=== PATIENT | male | born 1975 | race Caucasian/White ===

== ENCOUNTER 2021-09-05 17:12 | Emergency (ER) | payer MEDICAID ==
[~2021-09-05] VITALS: Ht 190.5 cm; Wt 80.9 kg
--- NOTE | 2021-09-05 17:40 | EKG ---
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
--- NOTE | 2021-09-05 17:45 | PHYS DOC ---
Past History Past Surgical History: Other Additional Past Surgical Histo: collapsed lung chest tube placed and removed (VENANCIO SILVA) Alcohol Use: Occasionally (VENANCIO SILVA) General Adult EDM: Chief Complaint: CHEST PAIN HPI: HPI: Patient is a 46 year old male who presents with left-sided chest pain. He rates his pain 3/10 that begins in his mid thorax and radiates up on the left side of his chest. Patient states he woke up yesterday morning around 0500 with left- sided low back pain. He states that he went back to sleep, and when he woke up it was mostly resolved. Today he states the pain is higher and radiates into his chest, which concerned him. Patient reports 17 years ago, he had a spo ntaneous pneumothorax with chest tube that was placed and removed. Otherwise, he denies past medical history. Patient has additional complaint of cough and runny nose that began about a week ago. Patient denies fever, chills, significant shortness of breath, sputum production, palpitations, edema. Patient was vaccinated against COVID-19. (VENANCIO SILVA) Review of Systems: Review of Systems: Constitutional: See HPI Eyes: Denies change in visual acuity or visual field deficits HENT: See HPI Respiratory: See HPI Cardiovascular: See HPI GI: Denies abdominal pain, nausea, vomiting, bloody stools or diarrhea : Denies dysuria or hematuria Musculoskeletal: See HPI Integument: Denies rash or other skin lesions Neurologic: Denies headache, focal weakness or sensory changes (VENANCIO SILVA) Allergies: Allergies: Allergies Coded Allergies Type Severity Reaction Last Updated Verified No Known Drug Allergies 09/05/21 No (VENANCIO SILVA) Physical Exam: PE: Constitutional: Well developed, well nourished, no acute distress, non-toxic appearance. HENT: Normocephalic, atraumatic, bilateral external ears normal, oropharynx moist, no oral exudates, nose without obvious deformities or discharge. Eyes: PERRLA, EOMI, conjunctiva normal, no discharge. Neck: Normal range of motion, no tenderness, supple, no stridor. Cardiovascular: Heart rate regular rhythm, no murmur. Lungs & Thorax: Bilateral breath sounds even and clear to auscultation. Abdomen: Bowel sounds normal, soft, no tenderness, no masses, no pulsatile masses. Skin: Warm, dry, no erythema, no rash. Back: No step-offs, no midline tenderness, lumbar paraspinal tenderness and spasm noted on left side, no CVA tenderness. Extremities: No tenderness, no cyanosis, no clubbing, ROM intact, no edema. Neurologic: Alert and oriented x4, no focal deficits noted. (VENANCIO SILVA) Current Patient Data: Vital Signs: Vital Signs Date Time Temp Pulse Resp B/P (MAP) Pulse Ox O2 Delivery O2 Flow Rate FiO2 09/05/21 17:20 98.1 104 19 156/91 (112) 98 Room Air (VENANCIO SILVA) EKG: EKG: EKG Interpreted by Dr. Benedict at 1722: Regular rate and rhythm 70 bpm with no ectopic beats. Biphasic (up-and-down) T waves in anterior leads. Regular QR interval. No STEMI. (VENANCIO SILVA) Radiology/Procedures: Radiology/Procedures: PROCEDURE: PORTABLE CHEST 1V Exam: Chest one view INDICATION: Left-sided chest pain TECHNIQUE: Frontal view of the chest Comparisons: None FINDINGS: The cardiomediastinal silhouette and pulmonary vessels are within normal limits. Subtle patchy airspace disease at the left lung base. No pleural effusion. IMPRESSION: Left basilar airspace disease may be infectious or inflammatory in etiology. Electronically signed by: Gilberto Spain MD (09/05/2021 5:52 PM) [facility] (VENANCIO SILVA) Heart Score: C/O Chest Pain: Yes HEART Score for Chest Pain: HEART Score for Chest Pain Response (Comments) Value History Slighlty/Non-Suspicious 0 ECG Nonspecific Repolarizatio 1 Age < 45 0 Risk Factors No Risk Factors 0 Total 1 Risk Factors: Risk Factors: none Risk Scores: Score 0 - 3: 2.5% MACE over next 6 weeks - Discharge Home Score 4 - 6: 20.3% MACE over next 6 weeks - Admit for Clinical Observation Score 7 - 10: 72.7% MACE over next 6 weeks - Early Invasive Strategies (VENANCIO SILVA) Course & Med Decision Making: Course & Med Decision Making Pertinent Labs and Imaging studies reviewed. (See chart for details) Patient presentation concerning for cardiac etiology versus pneumonia versus muscle spasm of back. Work-up today will include chest x-ray, lab work including troponin, EKG. Chest x-ray shows left basilar infiltrate, consistent with pneumonia. Patient advised to quarantine until he gets COVID test results back tomorrow. Patient will be provided with Z-Antonio and return precautions. Patient understands and is agreeable to discharge plan. (VENANCIO SILVA) Dragon Disclaimer: Dragon Disclaimer: This electronic medical record was generated, in whole or in part, using a voice recognition dictation system. (VENANCIO SILVA) Attending Co-Sign The patient was seen and interviewed as well as examined at the bedside. The chart was reviewed. The case was discussed. Agree with the plan of care. (ANIRUDH PEREZ DO) Departure Departure: Impression: Primary Impression: Community acquired pneumonia of left lower lobe of lung Disposition: HOME / SELF CARE / HOMELESS Condition: STABLE Referrals: PCP,NO (PCP) Patient Instructions: Pneumonia, Adult, [id number] Additional Instructions: Please return to the emergency department if you develop worsening symptoms, especially difficulty breathing or a fever that will not go down. You may follow-up with your primary care provider in about a week if your symptoms are not improving. Scripts Albuterol Sulfate (PROAIR HFA INHALER) 8.5 Gm Hfa.aer.ad 2 PUFF IH PRN Q4-6HRS PRN for SHORTNESS OF BREATH for 21 Days, #1 INHALER 0 Refills Prov: VENANCIO SILVA 09/05/21 Azithromycin (ZITHROMAX) 250 Mg Tablet 1 PKG PO UD for pna, #6 TAB Prov: VENANCIO SILVA 09/05/21 VENANCIO SILVA Sep 05, 2021 17:45 ANIRUDH PEREZ DO Sep 05, 2021 19:21
--- NOTE | 2021-09-05 17:54 | RAD ---
Exam: Chest one view INDICATION: Left-sided chest pain TECHNIQUE: Frontal view of the chest Comparisons: None FINDINGS: The cardiomediastinal silhouette and pulmonary vessels are within normal limits. Subtle patchy airspace disease at the left lung base. No pleural effusion. IMPRESSION: Left basilar airspace disease may be infectious or inflammatory in etiology. Electronically signed by: Gilberto Spain MD (09/05/2021 5:52 PM) [facility]
[2021-09-05 18:23] LABS: BASO # 0.1 x10^3/uL (0.0-0.2); BASO % 0 % (0-3); EOS # 0.2 x10^3/uL (0.0-0.7); EOS % 1 % (0-3); HEMATOCRIT 40.7 % (39.0-53.0); HEMOGLOBIN 13.8 g/dL (13.0-17.5); LYMPH # 2.4 x10^3/uL (1.0-4.8); LYMPH % 16 % (24-48); MEAN CORPUSCULAR HEMOGLOBIN 32 pg (25-35); MEAN CORPUSCULAR HGB CONC 34 g/dL (31-37); MEAN CORPUSCULAR VOLUME 94 fL (79-100); MONO # 1.3 x10^3/uL (0.0-1.1); MONO % 9 % (0-9); NEUT % 74 % (31-73); PLATELET COUNT 358 x10^3/uL (140-400); RED BLOOD COUNT 4.34 x10^6/uL (4.30-5.70); RED CELL DISTRIBUTION WIDTH 13.2 % (11.5-14.5)
[2021-09-05 18:34] LABS: CREATININE 0.8 mg/dL (0.7-1.3); GFR 103.6; POTASSIUM 4.1 mmol/L (3.5-5.1)
[2021-09-05 18:36] VITALS: BP 143/72
[2021-09-05 18:40] LABS: ALBUMIN 3.8 g/dL (3.4-5.0); ALBUMIN/GLOBULIN RATIO 1.1 (1.0-1.7); TOTAL BILIRUBIN 0.2 mg/dL (0.2-1.0); TOTAL PROTEIN 7.3 g/dL (6.4-8.2)
[2021-09-05 18:45] LABS: INFLUENZA A PATIENT NEGATIVE (NEGATIVE); INFLUENZA B PATIENT NEGATIVE (NEGATIVE)
[2021-09-05] MEDS ORDERED: AZIT250T PO (18:55)
[2021-09-05] MEDS ORDERED: ALBU2.5V8 IH (18:55)
== END 2021-09-05 19:01 | disposition home or self-care (01) ==
LOC: ER 17:12
DX: J18.1 Lobar pneumonia, unspecified organism (principal); Z20.822 Contact with and (suspected) exposure to COVID-19
CPT/HCPCS: 36415; 71045; 80053; 83690; 84484; 85025; 87804; 93005; 99285; C9803; U0003

== ENCOUNTER 2021-09-06 18:49 | Emergency (ER) | payer MEDICAID ==
[~2021-09-06] VITALS: Ht 190.5 cm; Wt 19.7 kg
[~2021-09-06 18:49] MED LIST: ALBU2.5V8 IH; AZIT250T PO
--- NOTE | 2021-09-06 19:57 | RAD ---
Exam: Chest one view INDICATION: Chest pain TECHNIQUE: Frontal view of the chest Comparisons: 09/05/2021 FINDINGS: The cardiomediastinal silhouette and pulmonary vessels are within normal limits. Patchy airspace disease at the left lung base. No pleural effusion. IMPRESSION: Persistent left basilar airspace disease, nonspecific may be infectious or inflammatory in etiology. Electronically signed by: Gilberto Spain MD (09/06/2021 7:54 PM) [facility]
--- NOTE | 2021-09-06 20:23 | PHYS DOC ---
Past History Past Surgical History: Other Additional Past Surgical Histo: collapsed lung chest tube placed and removed Alcohol Use: Occasionally General Adult EDM: Chief Complaint: CHEST PAIN HPI: HPI: 46-year-old male returns the emergency room with continued left-sided chest pain and flank pain. Patient was seen in this emergency room yesterday and diagnosed with left-sided pneumonia. He is on antibiotics and has an inhaler. He presents tonight because he states that the pain is worse when he lays down. Is an 8 out of 10 pain. His current pain is 2 out of 10. He states it is worse with deep breathing. Denies fever chills. He has no other specific complaints. Review of Systems: Review of Systems: Constitutional: Denies fever or chills Eyes: Denies change in visual acuity HENT: Denies nasal congestion or sore throat Respiratory: Denies cough or shortness of breath Cardiovascular: chest pain GI: Left upper abdominal pain. Denies nausea, vomiting, bloody stools or diarrhea : Denies dysuria Musculoskeletal: Denies back pain or joint pain Integument: Denies rash Neurologic: Denies headache, focal weakness or sensory changes Endocrine: Denies polyuria or polydipsia Lymphatic: Denies swollen glands Psychiatric: anxiety Allergies: Allergies: Allergies Coded Allergies Type Severity Reaction Last Updated Verified No Known Drug Allergies 09/05/21 No Physical Exam: PE: Constitutional: Well developed, well nourished, no acute distress, non-toxic appearance. [] HENT: Normocephalic, atraumatic, bilateral external ears normal, oropharynx moist, no oral exudates, nose normal. [] Eyes: PERRLA, EOMI, conjunctiva normal, no discharge. [] Neck: Normal range of motion, no tenderness, supple, no stridor. [] Cardiovascular: Heart rate regular rhythm, no murmur [] Lungs & Thorax: Bilateral breath sounds clear to auscultation [] Abdomen: Bowel sounds normal, soft, no tenderness, no masses, no pulsatile masses. [] Skin: Warm, dry, no erythema, no rash. [] Back: No tenderness, no CVA tenderness. [] Extremities: No tenderness, no cyanosis, no clubbing, ROM intact, no edema. [] Neurologic: Alert and oriented X 3, normal motor function, normal sensory function, no focal deficits noted. [] Psychologic: Affect normal, judgement normal, mood anxious. [] Current Patient Data: Vital Signs: Vital Signs Date Time Temp Pulse Resp B/P (MAP) Pulse Ox O2 Delivery O2 Flow Rate FiO2 09/06/21 19:11 98.8 88 20 76/72 (73) 98 EKG: EKG: Sinus rhythm, rate 75, rightward axis, no ST elevation or depression. [] Radiology/Procedures: Radiology/Procedures: [] Impressions: Exam: Chest one view INDICATION: Chest pain TECHNIQUE: Frontal view of the chest Comparisons: 09/05/2021 FINDINGS: The cardiomediastinal silhouette and pulmonary vessels are within normal limits. Patchy airspace disease at the left lung base. No pleural effusion. IMPRESSION: Persistent left basilar airspace disease, nonspecific may be infectious or inflammatory in etiology. Electronically signed by: Golden Mc MD (09/06/2021 7:54 PM) [facility] DICTATED AND SIGNED BY: GOLDEN MC MD DATE: 09/06/211952 CC: ANIRUDH PEREZ DO; PCP,NO ~MTH0 0 Exam: CT chest, abdomen and pelvis without contrast INDICATION: Flank pain TECHNIQUE: Sequential axial images through the chest, abdomen and pelvis obtained without IV contrast. Sagittal and coronal reformatted images were reconstructed from the axial data and reviewed. Exposure: One or more of the following in the visualized dose reduction techniques were utilized for this examination: 1. Automated exposure control 2. Adjustment of the MA and/or KV according to patient size 3. Use of iterative of reconstructive technique Comparisons: None FINDINGS: No enlarged mediastinal lymph nodes are identified. Heart size is normal. No pericardial effusion. Thoracic aorta has normal course and caliber. Pulmonary artery is not enlarged. Airways are patent. Consolidative changes noted in the right lower lobe. No pneumothorax. No pleural effusion or thickening. Evaluation solid organs limited secondary to noncontrast technique. Liver, spleen, pancreas, gallbladder and adrenals are unremarkable. No perinephric inflammation or hydronephrosis. No renal or ureteral calculi are identified. Bladder is decompressed not well evaluated. Prostate is not enlarged. Moderate amount stool noted in the colon. Appendix is normal. No free intra- abdominal air or fluid. No obstruction. Abdominal aorta has normal course and caliber. No enlarged abdominal lymph nodes are identified. No suspicious osseous lesions or acute fractures. IMPRESSION: 1. Consolidative changes noted greatest in the left lower lobe favored to be infectious or inflammatory in etiology. 2. No renal or ureteral calculi. No evidence for obstructive uropathy. Electronically signed by: Golden Mc MD (09/06/2021 9:16 PM) [facility] DICTATED AND SIGNED BY: GOLDEN MC MD DATE: 09/06/212109 CC: ANIRUDH PEREZ DO; PCP,NO ~MTH0 0 Heart Score: C/O Chest Pain: Yes HEART Score for Chest Pain: HEART Score for Chest Pain Response (Comments) Value History Slighlty/Non-Suspicious 0 ECG Nonspecific Repolarizatio 1 Age >45 - < 65 1 Risk Factors No Risk Factors 0 Troponin < Normal Limit 0 Total 2 Risk Factors: Risk Factors: DM, Current or recent (<one month) smoker, HTN, HLP, family history of CAD, obesity. Risk Scores: Score 0 - 3: 2.5% MACE over next 6 weeks - Discharge Home Score 4 - 6: 20.3% MACE over next 6 weeks - Admit for Clinical Observation Score 7 - 10: 72.7% MACE over next 6 weeks - Early Invasive Strategies Course & Med Decision Making: Course & Med Decision Making Pertinent Labs and Imaging studies reviewed. (See chart for details) Chest x-ray consistent use to show left-sided pneumonia. Patient's labs are significant for an elevated white count of 16. The patient's CT of the chest abdomen pelvis only shows the pneumonia in the left lower lung. The patient is to continue his antibiotics. He is stable for discharge at this time. [] Pepe Disclaimer: Pepe Disclaimer: This electronic medical record was generated, in whole or in part, using a voice recognition dictation system. Departure Departure: Impression: Primary Impression: Pneumonia Qualified Codes: J18.9 - Pneumonia, unspecified organism Disposition: HOME / SELF CARE / HOMELESS Condition: STABLE Referrals: PCP,NO (PCP) Patient Instructions: Pneumonia, Adult, [id number] ANIRUDH PEREZ DO Sep 06, 2021 20:23
[2021-09-06 21:06] LABS: BASO # 0.1 x10^3/uL (0.0-0.2); BASO % 1 % (0-3); EOS # 0.2 x10^3/uL (0.0-0.7); EOS % 1 % (0-3); HEMATOCRIT 41.7 % (39.0-53.0); HEMOGLOBIN 14.1 g/dL (13.0-17.5); LYMPH % 13 % (24-48); MEAN CORPUSCULAR HEMOGLOBIN 32 pg (25-35); MEAN CORPUSCULAR HGB CONC 34 g/dL (31-37); MEAN CORPUSCULAR VOLUME 93 fL (79-100); MONO # 1.3 x10^3/uL (0.0-1.1); MONO % 8 % (0-9); NEUT # 12.7 x10^3uL (1.8-7.7); NEUT % 78 % (31-73); PLATELET COUNT 370 x10^3/uL (140-400); RED BLOOD COUNT 4.46 x10^6/uL (4.30-5.70); RED CELL DISTRIBUTION WIDTH 13.3 % (11.5-14.5); WHITE BLOOD COUNT 16.3 x10^3/uL (4.0-11.0)
[2021-09-06 21:09] LABS: CALCIUM 9.8 mg/dL (8.5-10.1); CREATININE 0.8 mg/dL (0.7-1.3); GFR 103.6; POTASSIUM 4.3 mmol/L (3.5-5.1)
[2021-09-06 21:14] LABS: ALBUMIN 3.8 g/dL (3.4-5.0); TOTAL BILIRUBIN 0.3 mg/dL (0.2-1.0); TOTAL PROTEIN 7.6 g/dL (6.4-8.2)
--- NOTE | 2021-09-06 21:18 | RAD ---
Exam: CT chest, abdomen and pelvis without contrast INDICATION: Flank pain TECHNIQUE: Sequential axial images through the chest, abdomen and pelvis obtained without IV contrast . Sagittal and coronal reformatted images were reconstructed from the axial data and reviewed. Exposure: One or more of the following in the visualized dose reduction techniques were utilized for this examination: 1. Automated exposure control 2. Adjustment of the MA and/or KV according to patient size 3. Use of iterative of reconstructive technique Comparisons: None FINDINGS: No enlarged mediastinal lymph nodes are identified. Heart size is normal. No pericardial effusion. Thoracic aorta has normal course and caliber. Pulmonar y artery is not enlarged. Airways are patent. Consolidative changes noted in the right lower lobe. No pneumothorax. No pleural effusion or thickening. Evaluation solid organs limited secondary to noncontrast technique. Liver, spleen, pancreas, gallbladder and adrenals are unremarkable. No perinephric inflammation or hydronephrosis. No renal or ureteral calculi are identified. Bladder is decompressed not well evaluated. Prostate is not enlarged. Moderate amount stool noted in the colon. Appendix is normal. No free intra-abdominal air or fluid. N o obstruction. Abdominal aorta has normal course and caliber. No enlarged abdominal lymph nodes are identified. No suspicious osseous lesions or acute fractures. IMPRESSION: 1. Consolidative changes noted greatest in the left lower lobe favored to be infectious or inflammat ory in etiology. 2. No renal or ureteral calculi. No evidence for obstructive uropathy. Electronically signed by: Gilberto Spain MD (09/06/2021 9:16 PM) [facility]
[2021-09-06 21:39] VITALS: BP 137/76
--- NOTE | 2021-09-07 07:16 | EKG ---
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
--- NOTE | 2021-09-08 09:48 | NUR ---
Attempted to reach patient with covid results. No answer. Message left
--- NOTE | 2021-09-08 16:34 | NUR ---
Patient notified of covid results
== END 2021-09-06 21:51 | disposition home or self-care (01) ==
LOC: ER 18:49
DX: J18.9 Pneumonia, unspecified organism (principal); R10.12 Left upper quadrant pain
CPT/HCPCS: 36415; 71045; 71250; 74176; 80053; 84484; 85025; 93005; 99285-25

== ENCOUNTER 2021-09-28 15:19 | Inpatient (IN) | payer MEDICAID ==
[~2021-09-28] VITALS: Ht 190.5 cm; Wt 82.1 kg
--- NOTE | 2021-09-28 16:52 | RAD ---
INDICATION: Reason: LEFT SIDED CHEST PAIN / Spl. Instructions: / History: COMPARISON: September 06, 2021 FINDINGS: Single view of chest obtained. Blunting of the left costophrenic angle with focal opacity at the left lung base. Apical densities which could be from scarring. Right upper lung nodule which is better evaluated on recent CT IMPRESSION: * Blunting of the left costophrenic angle as well as opacity at the left lung base appears increased from prior could be secondary to infiltrate within the region with a component of small pleural effu yonatan not excluded. Follow-up could be obtained to ensure this resolves to exclude a persistent lesion in the area. Electronically signed by: Brant Gaona MD (09/28/2021 4:49 PM) [id number]
[2021-09-28] MEDS ORDERED: IOHEXOL 300 MG/ML 75 ML VIAL. IV ONE (17:00)
[2021-09-28] MEDS: MORPHINE SULFATE 4 MG/ML DISP.SYRIN. IV/SQ PRN ×3 (17:01→23:52)
--- NOTE | 2021-09-28 17:12 | PHYS DOC ---
Past History Past Surgical History: Other Additional Past Surgical Histo: collapsed lung chest tube placed and removed 17 YRS AGO (ANDREI THOMPSON WOOD TILE INSTALLATION HELPER) Alcohol Use: Occasionally (ANDREI THOMPSON WO[employer] TILE INSTALLATION HELPER) Adult General Chief Complaint Chief Complaint: CHEST PAIN HPI HPI Patient is a male with history of spontaneous pneumothorax years ago who presents the ED today complaining of 7 out of 10 left-sided sharp intermittent chest pain, symptoms began this morning. Patient states symptoms are worse on deep breaths. Denies anything specifically relieving his symptoms, he states he tried taking Aleve with no relief. He states he was diagnosed with pneumonia on September 05, 2021 and was treated with azithromycin. Patient states symptoms feel similar. (ANDREI THOMPSON WO[employer] TILE INSTALLATION HELPER) Review of Systems Review of Systems Constitutional: Denies fever or chills [] Eyes: Denies change in visual acuity, redness, or eye pain [] HENT: Denies nasal congestion or sore throat [] Respiratory: Denies cough or shortness of breath [] Cardiovascular: Reports left-sided chest pain GI: Denies abdominal pain, nausea, vomiting, bloody stools or diarrhea [] : Denies dysuria or hematuria [] Musculoskeletal: Denies back pain or joint pain [] Integument: Denies rash or skin lesions [] Neurologic: Denies headache, focal weakness or sensory changes [] Endocrine: Denies polyuria or polydipsia [] All other systems were reviewed and found to be within normal limits, except as documented in this note. (ANDREI THOMPSON WO[employer] INSTALLATION HELPER) Current Medications Current Medications Current Medications Medications (Trade) Dose Ordered Sig/Suzie Start Time Stop Time Status Last Admin Dose Admin Iohexol (Omnipaque 300 Mg/ml) 75 ml 1X ONCE 09/28/21 17:00 09/28/21 17:01 DC Morphine Sulfate (Morphine 4mg Syringe) 4 mg PRN Q15MIN PRN 09/28/21 16:45 09/29/21 16:44 09/28/21 17:01 4 MG (ANDREI THOMPSON [employer]ALLATION HELPER) Allergies Allergies Allergies Coded Allergies Type Severity Reaction Last Updated Verified No Known Drug Allergies 09/28/21 No (ANDREI THOMPSON [employer]STALLATION HELPER) Physical Exam Physical Exam Constitutional: Well developed, well nourished, no acute distress, non-toxic appearance. [] HENT: Normocephalic, atraumatic, bilateral external ears normal, oropharynx moist, no oral exudates, nose normal. [] Eyes: PERRLA, EOMI, conjunctiva normal, no discharge. [] Neck: Normal range of motion, no tenderness, supple, no stridor. [] Cardiovascular:Heart rate regular rhythm, no murmur [] Lungs & Thorax: Diminished breath sounds to the left upper lobe Abdomen: Bowel sounds normal, soft, no tenderness, no masses, no pulsatile masses. [] Skin: Warm, dry, no erythema, no rash. [] Back: No tenderness, no CVA tenderness. [] Extremities: No tenderness, no cyanosis, no clubbing, ROM intact, no edema. [] Neurologic: Alert and oriented X 3, normal motor function, normal sensory function, no focal deficits noted. [] Psychologic: Affect normal, judgement normal, mood normal. [] (ANDREI THOMPSON WO[employer] TILE INSTALLATION HELPER) Current Patient Data Vital Signs Vital Signs Date Time Temp Pulse Resp B/P (MAP) Pulse Ox O2 Delivery O2 Flow Rate FiO2 09/28/21 17:01 43 92 09/28/21 16:50 96 128/82 (97) Room Air 09/28/21 16:11 99.7 (ANDREI THOMPSON [employer]STALLATION HELPER) EKG EKG Interpreted by Dr. Johnson Garrison sinus rhythm heart rate 96 no STEMI[] (ANDREI THOMPSON APRN) Radiology/Procedures Radiology/Procedures []PROCEDURE: PORTABLE CHEST 1V INDICATION: Reason: LEFT SIDED CHEST PAIN / Spl. Instructions: / History: COMPARISON: September 06, 2021 FINDINGS: Single view of chest obtained. Blunting of the left costophrenic angle with focal opacity at the left lung base. Apical densities which could be from scarring. Right upper lung nodule which is better evaluated on recent CT IMPRESSION: * Blunting of the left costophrenic angle as well as opacity at the left lung base appears increased from prior could be secondary to infiltrate within the region with a component of small pleural effusion not excluded. Follow-up could be obtained to ensure this resolves to exclude a persistent lesion in the area. Electronically signed by: Deidre De Dios MD (09/28/2021 4:49 PM) [id number] DICTATED AND SIGNED BY: DEIDRE DE DIOS MD DATE: 09/28/21 1646 CC: LOKESH GARRISON MD; ANDREI THOMPSON APRN; PCP,NO ~MTH0 0 PROCEDURE: CT CHEST W/CONTRAST INDICATION: Reason: left sided chest pain OMNI 300 75 ML / Spl. Instructions: / History: COMPARISON: September 06, 2021 TECHNIQUE: Axial CT images obtained through the chest. Intravenous contrast was utilized. One or more of the following individualized dose reduction techniques were utilized for this examination: 1. Automated exposure control; 2. Adjustment of the mA and/or kV according to patient size; 3. Use of iterative reconstruction technique. FINDINGS: Consolidation is seen at the left lung base with adjacent small pleural effusion. Cystic changes within the bilateral lungs. Linear high density structure left upper lung could be postoperative or from linear calcification. There is some subpleural nodularity at the right upper lung again seen. Heterogeneity of the partially visualized spleen which could be from phase of enhancement but limits evaluation. There is some prominent lymph nodes in the mediastinum. No evidence of thoracic aortic aneurysm.. Mild degenerative changes spine. IMPRESSION: Repeat demonstration of consolidation at the left lung base which could be secondary to infiltrate within the region. Would obtain a follow-up to ensure that this resolves to exclude any persistent mass in the area. There is also small left-sided pleural effusion now seen. Subpleural nodularity at the right lung apex. Attention on follow-up to ensure no growth. Cystic changes the lungs. Electronically signed by: Deidre De Dios MD (09/28/2021 5:26 PM) DESKTOP- [id number] DICTATED AND SIGNED BY: DEIDRE DE DIOS MD DATE: 09/28/21 1717 CC: LOKESH GARRISON MD; ANDREI THOMPSON APRN; PCP,NO ~MTH0 0 (ANDREI THOMPSON APRN) Heart Score C/O Chest Pain: N/A Risk Factors: Risk Factors: DM, Current or recent (<one month) smoker, HTN, HLP, family history of CAD, obesity. Risk Scores: Risk Factors: DM, Current or recent (<one month) smoker, HTN, HLP, family history of CAD, obesity. (ANDREI THOMPSON APRN) Course & Med Decision Making Course & Med Decision Making Pertinent Labs and Imaging studies reviewed. (See chart for details) This is a 46-year-old male patient presented to the ED today complaining of chest pain that began this morning. Patient was diagnosed with pneumonia September 05, 2021 and treated with azithromycin. Vitals on arrival to the ED temperature 99.7 heart rate 102 respiration 36 on room air, blood pressure 128/75, O2 sats 96% Chest x-ray noted for increased infiltrate to the left lower lobe worse than the previous exam CTA chest noted for left lower lobe pneumonia CBC with a WBC of 20.2 and a left shift, CMP with no acute findings, lactic is pending. Blood cultures are pending. Spoke to Dr. Manriquez who accepted patient for admission. Patient was given Rocephin in the ED and started on Levaquin. (ANDREI THOMPSON APRN) Dragon Disclaimer Dragon Disclaimer This electronic medical record was generated, in whole or in part, using a voice recognition dictation system. (ANDREI THOMPSON APRN) Departure Departure: Impression: Primary Impression: Left lower lobe pneumonia Additional Impressions: Sepsis Fever Disposition: ADMITTED INPATIENT Condition: STABLE Referrals: PCP,NO (PCP) Attending Signature Attending Signature I have participated in the care of this patient and I have reviewed and agree with all pertinent clinical information above including history, exam, and recom mendations. (GALI VITAL MD) Problem Qualifiers Primary Impression: Left lower lobe pneumonia Pneumonia type: due to unspecified organism Qualified Codes: J18.9 - Pneumonia, unspecified organism Additional Impressions: Sepsis Sepsis type: sepsis due to unspecified organism Sepsis acute organ dysfunction status: unspecified Qualified Codes: A41.9 - Sepsis, unspecified organism Fever Fever type: unspecified Qualified Codes: R50.9 - Fever, unspecified ANDREI THOMPSON APRN Sep 28, 2021 17:12 GALI VITAL MD Sep 29, 2021 18:22
[2021-09-28 17:21] LABS: BASO # 0.1 x10^3/uL (0.0-0.2); BASO % 1 % (0-3); EOS # 0.1 x10^3/uL (0.0-0.7); EOS % 0 % (0-3); HEMATOCRIT 42.6 % (39.0-53.0); HEMOGLOBIN 14.2 g/dL (13.0-17.5); LYMPH % 5 % (24-48); MEAN CORPUSCULAR HEMOGLOBIN 31 pg (25-35); MEAN CORPUSCULAR HGB CONC 33 g/dL (31-37); MEAN CORPUSCULAR VOLUME 93 fL (79-100); MONO # 1.2 x10^3/uL (0.0-1.1); MONO % 6 % (0-9); NEUT # 17.7 x10^3uL (1.8-7.7); NEUT % 88 % (31-73); PLATELET COUNT 229 x10^3/uL (140-400); RED BLOOD COUNT 4.58 x10^6/uL (4.30-5.70); WHITE BLOOD COUNT 20.2 x10^3/uL (4.0-11.0)
[2021-09-28 17:29] LABS: CALCIUM 8.9 mg/dL (8.5-10.1); CREATININE 0.8 mg/dL (0.7-1.3); GFR 103.6; POTASSIUM 4.2 mmol/L (3.5-5.1)
--- NOTE | 2021-09-28 17:29 | RAD ---
INDICATION: Reason: left sided chest pain OMNI 300 75 ML / Spl. Instructions: / History: COMPARISON: September 06, 2021 TECHNIQUE: Axial CT images obtained through the chest. Intravenous contrast was utilized. One or more of the following individualized dose reduction techniques were utilized for this examinat ion: 1. Automated exposure control; 2. Adjustment of the mA and/or kV according to patient size; 3 . Use of iterative reconstruction technique. FINDINGS: Consolidation is seen at the left lung base with adjacent small pleural effusion. Cystic changes within the bilateral lungs. Linear high density structure left upper lung could be postoperative or from linear calcification. There is some subpleural nodularity at the right upper lung again seen. Heterogeneity of the partially visualized spleen which could be from phase of enhancement but limits evaluation. There is some prominent lymph nodes in the mediastinum. No evidence of thoracic aortic an eurysm.. Mild degenerative changes spine. IMPRESSION: Repeat demonstration of consolidation at the left lung base which could be secondary to infiltrate wi thin the region. Would obtain a follow-up to ensure that this resolves to exclude any persistent mass in the area. There is also small left-sided pleural effusion now seen. Subpleural nodularity at the right lung apex. Attention on follow-up to ensure no growth. Cystic changes the lungs. Electronically signed by: Brant Gaona MD (09/28/2021 5:26 PM) DESKTOP-[id number]
[2021-09-28 17:46] LABS: ALBUMIN 3.9 g/dL (3.4-5.0); ALBUMIN/GLOBULIN RATIO 1.2 (1.0-1.7); MAGNESIUM 1.8 mg/dL (1.8-2.4); TOTAL BILIRUBIN 0.7 mg/dL (0.2-1.0); TOTAL PROTEIN 7.2 g/dL (6.4-8.2)
[2021-09-28 17:54] LABS: % BANDS 2 % (0-9); % LYMPHS 13 % (24-48); % MONOS 8 % (0-10); % SEGS 77 % (35-66); PLT ESTIMATE ADEQUATE (ADEQUATE)
[2021-09-28] MEDS ORDERED: ACETAMINOPHEN 325 MG TABLET PO PRN (19:15)
[2021-09-28] MEDS ORDERED: IV NORMAL SALINE 1,000ML 1,000 ML IV ONE ×2 (19:15)
[2021-09-28] MEDS ORDERED: cefTRIAXone SODIUM 1 GM VIAL ONE (19:20)
[2021-09-28] MEDS ORDERED: IV NORMAL SALINE 50ML 50 ML ONE (19:20)
[2021-09-28 20:15] VITALS: BP 150/86
[2021-09-28 20:24] LABS: AMPHETAMINE/METHAMPHETAMINE NEG (NEG); BARBITURATES NEG (NEG); BENZODIAZEPINES NEG (NEG); CANNABINOIDS POS (NEG); COCAINE NEG (NEG); METHADONE NEG (NEG); OPIATES POS (NEG); PHENCYCLIDINE NEG (NEG)
[2021-09-28 20:26] LABS: BACTERIA,URINE 0 /HPF (0-FEW); BILIRUBIN,URINE NEG (NEG); CLARITY,URINE CLEAR; COLOR,URINE YELLOW; GLUCOSE,URINE NEG (NEG); NITRITE,URINE NEG (NEG); RBC,URINE 0 /HPF (0-2); UROBILINOGEN,URINE 0.2 mg/dL (0.2 mg/dL); WBC,URINE OCC /HPF (0-4)
[2021-09-28] MEDS: ONDANSETRON PF 4 MG/2 ML VIAL. IVP PRN (21:16)
[2021-09-28] MEDS: MORPHINE SULFATE 4 MG/ML DISP.SYRIN. IVP PRN (23:52)
[2021-09-29 00:40] VITALS: BP 152/78
[2021-09-29] MEDS: MORPHINE SULFATE 4 MG/ML DISP.SYRIN. IVP PRN ×5 (04:58→23:26)
[2021-09-29 07:04] LABS: BASO % 0 % (0-3); EOS % 0 % (0-3); HEMATOCRIT 41.1 % (39.0-53.0); HEMOGLOBIN 13.6 g/dL (13.0-17.5); LYMPH # 0.9 x10^3/uL (1.0-4.8); LYMPH % 3 % (24-48); MEAN CORPUSCULAR HEMOGLOBIN 31 pg (25-35); MEAN CORPUSCULAR HGB CONC 33 g/dL (31-37); MEAN CORPUSCULAR VOLUME 94 fL (79-100); MONO # 2.2 x10^3/uL (0.0-1.1); MONO % 7 % (0-9); NEUT # 26.4 x10^3uL (1.8-7.7); NEUT % 89 % (31-73); PLATELET COUNT 199 x10^3/uL (140-400); RED BLOOD COUNT 4.39 x10^6/uL (4.30-5.70); RED CELL DISTRIBUTION WIDTH 13.9 % (11.5-14.5); WHITE BLOOD COUNT 29.5 x10^3/uL (4.0-11.0)
--- NOTE | 2021-09-29 07:07 | EKG ---
[address] [address] Test Date: 2021-09-28 Test Time: 16:58:14 Pat Name: POONAM IBANEZ Department: Room: 111 A Gender: M Strip Presser: STEFANO : 1975 Requested By: ANDREI THOMPSON Order Number: [id number] Reading MD: Hasmukh Irving MD Measurements Intervals [place] Rate: 96 P: 42 LA: 134 QRS: 47 QRSD: 102 T: 70 QT: 332 QTc: 420 Interpretive Statements SINUS RHYTHM Electronically Signed On 10-01-2021 13:22:16 PARANORMAL INVESTIGATOR by Hasmukh Irving MD
[2021-09-29 07:17] LABS: ALBUMIN/GLOBULIN RATIO 0.8 (1.0-1.7); CALCIUM 8.5 mg/dL (8.5-10.1); CREATININE 0.7 mg/dL (0.7-1.3); GFR 120.9; POTASSIUM 3.8 mmol/L (3.5-5.1); TOTAL BILIRUBIN 0.7 mg/dL (0.2-1.0); TOTAL PROTEIN 6.7 g/dL (6.4-8.2)
[2021-09-29] MEDS: ONDANSETRON PF 4 MG/2 ML VIAL. IVP PRN (08:11)
[2021-09-29] MEDS ORDERED: FLU VACC QUAD 21-22 (6MOS+) PF 0.5 ML SYRINGE. VAX IM ONE (09:00)
--- NOTE | 2021-09-29 10:09 | HP ---
DATE OF SERVICE: 09/29/2021 ADMIT DATE: 09/28/2021 ATTENDING PHYSICIAN: Dr. Manriquez. CHIEF COMPLAINT: Left chest pain. HISTORY OF PRESENT ILLNESS: The patient is a 46-year-old gentleman, otherwise healthy. He has been sick for the last 3 weeks. He had around a Z-JACKSON through an urgent care clinic. He is a smoker. Workup in the ED showed a definitive infiltrate in the left lower lobe consistent with community-acquired pneumonia. He has associated pleurisy with sharp pleuritic-type chest pain with deep inspiration. He has been vaccinated for COVID. His serology was negative. He is admitted then with a routine community-acquired pneumonia. PAST MEDICAL HISTORY: Significant for spontaneous pneumothorax requiring a chest tube reexpansion 17 years ago. He is a smoker of a pack of cigarettes daily. He does not drink alcohol. There is no history of diabetes or hypertension. ALLERGIES: He has no known drug allergies. SOCIAL HISTORY: The patient grew up in [place], [place]. 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 He is and lives with 3 children, ages 17, 11 and 7 respectively, 2 sons and the youngest one a daughter. His parents are alive at age 79 and 75 respectively. They still live in [place]. They are in good health. He has not had any COVID exposure. He had his vaccines are ready. REVIEW OF SYSTEMS: All other systems reviewed and turned to be negative. PHYSICAL EXAMINATION: GENERAL: When I saw him, this is a very pleasant, middle-aged gentleman. VITAL SIGNS: Initial vital signs showed a blood pressure of 128/75, pulse was 96 and regular, temperature 99.7 degrees Fahrenheit, oxygen saturation 92% on room air. HEENT: Head is without trauma. Pupils are reactive. Sclerae nonicteric. Oropharynx is clear. NECK: Supple, no bruits. LUNGS: Minimal rhonchi in the left base. CARDIOVASCULAR: Showed regular heart tones. ABDOMEN: Soft. EXTREMITIES: Without edema. NEUROLOGIC FINDINGS: Focally intact. PERTINENT LABORATORY STUDIES: CT of the chest shows consolidation in the left lung with adjacent small pleural effusion. There is a partially visualized spleen. No obstructions or decompensation identified. LABORATORY STUDIES: His admission hemoglobin was 14.2 g/dL with a white count of 20,200. Chemistries were within normal range. Creatinine is 0.7 mg percent. Cardiac enzymes negative. ASSESSMENT: 1. A 46-year-old gentleman with left lower lobe pneumonia, community-acquired. This is not COVID. He is tested negative and he has been vaccinated. 2. Associated pleurisy. 3. Chronic obstructive pulmonary disease due to tobacco use. PLAN: 1. Admit to the inpatient unit. 2. Rocephin and Zithromax has been ordered. 3. Empiric Solu-Medrol. 4. Follow up CBCs. He has leukocytosis and early leukemoid reaction. 5. We are weaning him off supplemental oxygen. His saturation is adequate on room air. ROSEMARY DR: Mark TID: [id number]
[2021-09-29 10:23] VITALS: BP 127/78
[2021-09-29] MEDS ORDERED: methylPREDNISolone SOD SUCC PF 125 MG/2 ML VIAL. IV ONE (11:00)
[2021-09-29] MEDS ORDERED: AZITHROMYCIN 500 MG in IV NORMAL SALINE 250ML 250 ML IV SCH (11:00)
[2021-09-29 15:12] VITALS: BP 137/57
[2021-09-29 19:39] VITALS: BP 134/71
[2021-09-29 23:34] VITALS: BP 136/73
[2021-09-30 06:29] VITALS: BP 118/73
[2021-09-30] MEDS ORDERED: FLU VACC QUAD 21-22 (6MOS+) PF 0.5 ML SYRINGE. VAX IM ONE (09:00)
--- NOTE | 2021-09-30 09:06 | DS ---
DATE OF DISCHARGE: 09/30/2021 ATTENDING PHYSICIAN: Dr. Manriquez. FINAL DISCHARGE DIAGNOSES: 1. Community-acquired pneumonia, left lower lobe. 2. Pleuritic-type chest pain, resolved. 3. Mild hypoxemia, resolved. 4. Tobacco use and mild chronic obstructive pulmonary disease. HISTORY AND PHYSICAL: The patient is a healthy 46-year-old gentleman. He has been vaccinated against COVID. 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 He has been sick for the last several days up to the week before. He went through a round of Z-Antonio without any improvement. He is a smoker. Workup in the ED showed an infiltrate in the left lower lobe consistent with community-acquired pneumonia. Cultures were negative. Clinically, he was not septic. He did have pleuritic-type chest pain, which responded well to corticosteroids. He was admitted for further treatment and evaluation. PHYSICAL EXAMINATION: Please see my dictated note. PERTINENT LABORATORY AND X-RAY STUDIES: Chemistry on admission showed a sodium 137, potassium 3.8 mEq. Blood sugars were normal. Transaminases were normal. Hemoglobin was 14.2 grams, white count 20,000, it was elevated due to margination of white cells from corticosteroid therapy. Serology was negative for coronavirus. Chest x-ray as noted. COURSE IN THE HOSPITAL: The patient was admitted. He was treated with 2 full days of intravenous Rocephin and Zithromax along with Solu-Medrol and supplemental oxygen was able to wean. By the third day, his oxygen saturation 91% on room air. He was moving air well. He was ready for discharge. At this time, I recommended 7 more days of cephalexin 500 mg p.o. t.i.d., Zithromax 500 mg p.o. daily for 7 more days and prednisone 40 mg daily for 5 days and stop. I did suggest a followup chest x-ray in 1 week at the beginning of the New Year. He does not have a local physician. He can either try to find one before then or go to the urgent care clinic. The patient was then discharged from our hospital in stable condition with explicit instruction and followup care. Total discharge time spent is [address]: Mark TID: [id number]
[2021-09-30] MEDS ORDERED: LACTOBACILLUS RHAMNOSUS GG 1 CAPSULE. PO SCH (21:00)
== END 2021-09-30 10:18 | disposition home or self-care (01) | DRG 871 ==
LOC: ER 15:19 → 1 SOUTH 19:08
PROVIDERS: ADMIT Hospitalist; ATTEND Hospitalist
DX: A41.9 Sepsis, unspecified organism (principal); J18.9 Pneumonia, unspecified organism; J44.0 Chronic obstructive pulmonary disease with (acute) lower respiratory infection; J90 Pleural effusion, not elsewhere classified; F17.200 Nicotine dependence, unspecified, uncomplicated; R09.02 Hypoxemia; Z20.822 Contact with and (suspected) exposure to COVID-19; R07.81 Pleurodynia
CPT/HCPCS: 36415; 71045; 71260; 80053; 80307; 81001; 82553; 83605; 83735; 83880; 84443; 84484; 85007; 85025; 85379; 85730; 87040; 87426; 93005; J0456; J0696; J1956; J2270; J2405; J2930; J7050; Q9967; U0003; 99285-25; J7030

== ENCOUNTER → 2021-10-10 | Outpatient (CLI) | payer MEDICAID ==
[2021-09-30 06:29] VITALS: BP 118/73
--- NOTE | 2021-10-10 14:35 | RAD ---
XR CHEST 2V History: Reason: follow up pna / Spl. Instructions: / History: Comparison: Radiographs September 28, [address] Findings: Increased moderate loculated left pleural effusion with adjacent atelectasis. No pneumothorax. Unchan ged heart size. Postoperative changes left lung apex. Impression: 1. Increased moderate loculated left pleural effusion. Electronically signed by: Sonido Rebolledo DO (10/10/2021 2:33 PM) [facility] [place]
== END ==
LOC: RAD 13:02
PROVIDERS: ATTEND Family Medicine
DX: J90 Pleural effusion, not elsewhere classified (principal); Z87.01 Personal history of pneumonia (recurrent)
CPT/HCPCS: 71046

== ENCOUNTER → 2021-10-23 | Outpatient (CLI) | payer MEDICAID ==
[2021-09-30 06:29] VITALS: BP 118/73
--- NOTE | 2021-10-23 20:17 | RAD ---
EXAM: XR CHEST 2V 10/23/2021 6:15 PM CLINICAL INDICATION: Cough, pneumonia COMPARISON: Chest radiograph 10/10/2021 TECHNIQUE: PA and lateral views of the chest FINDINGS: A moderate loculated pleural effusion along the left lower left posterior hemithorax is un changed. There is mild left lung volume loss. Airspace opacities in the left lower lobe are mildly de creased on lateral view. The right lung is clear. No pneumothorax. No acute osseous abnormality. IMPRESSION: 1. Unchanged moderate loculated left pleural effusion. 2. Mildly decreased left lower lobe consolidation. Electronically signed by: Carol Carias MD (10/23/2021 8:15 PM) [id number]
== END ==
LOC: DXRAD 18:00
PROVIDERS: ATTEND Nurse Practitioner Family
DX: J90 Pleural effusion, not elsewhere classified (principal); Z87.01 Personal history of pneumonia (recurrent)
CPT/HCPCS: 71046

== ENCOUNTER → 2021-11-02 | Outpatient (CLI) | payer MEDICAID ==
--- NOTE | 2021-11-02 12:18 | RAD ---
EXAM: Chest CT without intravenous contrast. HISTORY: Pneumonia. TECHNIQUE: Computed tomographic images of the chest were obtained without contrast. Multiplanar refor matting was performed. *One or more of the following individualized dose reduction techniques were utilized for this examina tion: 1. Automated exposure control. 2. Adjustment of the mA and/or kV according to patient size. 3. Use of iterative reconstruction technique. COMPARISON: 09/28/2021. FINDINGS: The heart is normal in size. The aorta is normal in caliber. There are is an enlarged right paratracheal lymph node measuring 1.4 cm, stable in appearance. There are is a small to moderate loc ulated thick-walled posterior left pleural fluid collection.. There is adjacent posterior dependent l eft lung infiltrate or compressive atelectasis. There is a 3.4 cm right lower lobe cyst or pneumatoce le. There are bilateral apical predominant subpleural blebs and there is biapical pleural thickening and architectural distortion due to scarring. There is a left apical surgical anastomosis. There are few small pulmonary nodules primarily within an apical distribution likely due to aforement ioned scarring. The largest of these measures 1.4 cm within the lateral right upper lobe. There is la teral left lower thoracic scarring and right middle lobe scarring. There is a tiny cluster of groundg lass nodules within the lateral right upper lobe measuring up to 2 mm. There is no acute finding invo lving the upper abdomen. There is no acute or suspicious osseous lesion. IMPRESSION: 1. Interval loculation of a previously demonstrated small moderate left pleural fluid collection with thick wall and adjacent left lower lobe posterior dependent atelectasis or infiltrate. This may be d ue to the sequela of chronic inflammation. The possibility of empyema is not excluded. Correlate with symptomatology. 2. Slight interval increase in nodular opacities within the right greater than left upper lobes, the appearance of which favors an infectious or inflammatory etiology.. There is adjacent apical predomin ant pleural parenchymal scarring. Continued short-term follow-up in 3 months is recommended. 3. Emphysema. 4. Stable enlarged right paratracheal lymph node. 5. Left apical anastomosis. Electronically signed by: Emma Plasencia MD (11/02/2021 12:16 PM) [id number]
== END ==
LOC: CT 11:21
PROVIDERS: ATTEND Physician Assistant Medical
DX: J43.9 Emphysema, unspecified (principal); R59.0 Localized enlarged lymph nodes; R91.8 Other nonspecific abnormal finding of lung field; J98.4 Other disorders of lung
CPT/HCPCS: 71250

== ENCOUNTER → 2021-12-03 | Outpatient (CLI) | payer MEDICAID ==
--- NOTE | 2021-12-03 11:57 | RAD ---
CT of the chest compared to similar exam dated November [id number] for pneumonia pleural effusion, his tory of collapsed left lung for 17 years. TECHNIQUE: Contiguous axial CT images are obtained through the chest. Sagittal and coronal reformatio ns are evaluated. FINDINGS: Stable prominent right paratracheal lymph node. No definitely suspicious mediastinal, hilar , or axillary lymphadenopathy is identified. Heart size within normal limits. Abdominal aortic athero sclerosis. No gross abnormalities the visualized upper abdominal organs, though evaluation is limited by lack of IV contrast. No significant osseous abnormalities. Central airways are patent. The previo usly described loculated pleural fluid collection on the left is fully resolved, though there remains confluent segmental atelectasis involving the posterior medial basilar segments. Apical pleural pare nchymal scarring is redemonstrated and appear stable. There are few stable parenchymal subcentimeter lung nodules as well, which may be parenchymal scars. Pleural parenchymal scarring in the left lower lung is stable. No new lung nodules are identified. Mild emphysematous changes are stable. For protoc ol purposes, the most conspicuous lung nodules are seen in the right upper lobe, against a small acce ssory fissure on axial image #23 of series 2, measuring 6 mm in diameter, slightly more caudal on axi al image numbers 29 and 30, appearing as a mixed solid and groundglass nodule measuring 1.2 cm, and a gain slightly more caudal is a 5 mm nodule on axial image #34. There is also an irregular mixed solid and groundglass abnormality of the medial aspect of the right upper lobe seen on axial image 45. A n ew very subtle irregular infiltrate is seen in superior segment left lower lobe on axial image #57, w ith appearance most suggestive of a small acute inflammatory or infectious focus. IMPRESSION: 1. Resolved loculated left pleural effusion with persistent confluent lower subsegmental atelectasis. 2. Stable multifocal pleural parenchymal scarring, most notable the lung apices but also involving th e left lower lobe and right middle lobes. 3. A few stable scattered irregular nodular densities primarily involving the right upper lobe, which have an appearance most suggestive of parenchymal scarring, but which are equivocal and require surv eillance in this high risk patient. Recommend 6 month follow-up CT scan with progression annual surve illance studies if they remain stable. 4. New very small area of infiltrate within the peripheral aspect of the superior segment left lower lobe, likely benign acute infectious or inflammatory focus. PQRS Compliance Statement: One or more of the following individualized dose reduction techniques were utilized for this examinat ion: 1. Automated exposure control 2. Adjustment of the mA and/or kV according to patient size 3. Use of iterative reconstruction technique Electronically signed by: Quinten Molina MD (12/03/2021 11:54 AM) [id number]
== END ==
LOC: CT 09:24
PROVIDERS: ATTEND Internal Medicine Pulmonary Disease
DX: R91.8 Other nonspecific abnormal finding of lung field (principal); J98.11 Atelectasis; I70.0 Atherosclerosis of aorta; J18.9 Pneumonia, unspecified organism
CPT/HCPCS: 71250